=== PATIENT | female | born 1985 | race American Indian/Alaskan Native ===

== ENCOUNTER 2016-07-19 02:32 | Emergency (ER) | payer MEDICAID ==
[2016-07-19 03:28] VITALS: BMI 40.3
[2016-07-19 03:34] VITALS: BP 142/72; PULSE 84; RESP 18; TEMP 97.9; O2SAT 99
--- NOTE | 2016-07-19 03:41 | ED PDOC ---
Arrival/HPI - General Chief Complaint: ENT Problem Time Seen by Provider: 07/19/16 03:36 Historian: Patient - History of Present Illness Narrative History of Present Illness (Text): 07/19/16 03:39 Desirae Black is a 31 year old female who presents to the emergency department complaining of sore throat associated with nasal congestion for past week. Also notes of ringing in left ear. Denies any fever, chills, headache, difficulty breathing, chest pain, nausea, vomiting, diarrhea, urinary symptoms, or any other complaints at this time. Time/Duration: 1 week Symptom Onset: Gradual Symptom Course: Unchanged Severity Level: Mild Activities at Onset: Light Past Medical History - Provider Review Nursing Documentation Reviewed: Yes - Psychiatric Hx Substance Use: (denies) Family/Social History - Physician Review Nursing Documentation Reviewed: Yes Family/Social History: No Known Family HX Smoking Status: denies Hx Alcohol Use: (denies) Hx Substance Use: (denies) Allergies/Home Meds Allergies/Adverse Reactions: Allergies oxycodone Adverse Reaction (Verified 07/19/16 03:29) DIZZINESS Review of Systems - Physician Review All systems were reviewed & negative as marked: Yes - Review of Systems Constitutional: Normal. absent: Fatigue, Fevers ENT: Sore Throat, Other (nasal congestion and ringing in left ear ) Respiratory: Normal. absent: SOB, Cough Cardiovascular: Normal. absent: Chest Pain, Palpitations Gastrointestinal: Normal. absent: Abdominal Pain, Diarrhea, Nausea, Vomiting Neurological: Normal. absent: Headache, Dizziness Psychiatric: Normal Physical Exam Vital Signs Reviewed: Yes Vital Signs Temp Pulse Resp BP Pulse Ox 07/19/16 03:29 97.9 F 84 18 142/72 99 Temperature: Afebrile Blood Pressure: Normal Pulse: Regular Respiratory Rate: Normal Appearance: Positive for: Well-Appearing, Non-Toxic, Comfortable Pain Distress: None Mental Status: Positive for: Alert and Oriented X 3 - Systems Exam Head: Present: Atraumatic, Normocephalic Pupils: Present: PERRL Extroacular Muscles: Present: EOMI Conjunctiva: Present: Normal Ears: Present: Normal, NORMAL TM, Normal Canal. No: Erythema, TM Bulging Mouth: Present: Moist Mucous Membranes Pharnyx: Present: Normal, ERYTHEMA (posterior pharyngeal erythema ). No: EXUDATE, TONSILS ENLARGED, Peritonsilar Swelling Nose (Internal): Present: Other (congestion ) Respiratory/Chest: Present: Clear to Auscultation, Good Air Exchange. No: Respiratory Distress, Accessory Muscle Use Cardiovascular: Present: Regular Rate and Rhythm, Normal S1, S2. No: Murmurs Abdomen: Present: Normal Bowel Sounds. No: Tenderness, Distention, Peritoneal Signs Upper Extremity: Present: Normal Inspection. No: Cyanosis, Edema Lower Extremity: Present: Normal Inspection. No: Edema Neurological: Present: GCS=15, CN II-XII Intact, Speech Normal, Motor Func Grossly Intact, Normal Sensory Function Skin: Present: Warm, Dry, Normal Color. No: Rashes Psychiatric: Present: Alert, Oriented x 3, Normal Insight, Normal Concentration Medical Decision Making ED Course and Treatment: 07/19/16 03:52 Impression: A 31 year old female who presents to the emergency department complaining of sore throat, nasal congestion and ringing in left ear for past week. Plan: -- Amoxil -- Sudafed -- Reassess and disposition Progress Notes: 07/19/16 03:53 Will discharge patient home on Amoxil and sudafed. Advised to present to emergency department for worsening symptoms and follow up with PMD within few days. - Medication Orders Current Medication Orders: Discontinued Medications Amoxicillin (Amoxil 500 Mg Cap) 500 mg PO STAT STA PRN Reason: Protocol Stop: 07/19/16 03:41 Last Admin: 07/19/16 03:50 Dose: 500 mg Pseudoephedrine HCl (Sudafed Tab) 30 mg PO ONCE ONE Stop: 07/19/16 03:41 Last Admin: 07/19/16 03:50 Dose: 30 mg - Scribe Statement The provider has reviewed the documentation as recorded by the Irish Velázquez Provider Attestation: All medical record entries made by the Irish were at my direction and personally dictated by me. I have reviewed the chart and agree that the record accurately reflects my personal performance of the history, physical exam, medical decision making, and the department course for this patient. I have also personally directed, reviewed, and agree with the discharge instructions and disposition. Disposition/Present on Arrival - Present on Arrival Any Indicators Present on Arrival: No History of DVT/PE: No History of Uncontrolled Diabetes: No Urinary Catheter: No History of Decub. Ulcer: No History Surgical Site Infection Following: None - Disposition Have Diagnosis and Disposition been Completed?: Yes Diagnosis: Pharyngitis, URI (upper respiratory infection) Disposition: HOME/ ROUTINE Disposition Time: 03:41 Patient Plan: Discharge Condition: GOOD Discharge Instructions (ExitCare): Pharyngitis (ED), Upper Respiratory Infection (ED) Additional Instructions: Take meds as prescribed/drink cool liquids/follow up with your doctor this week Prescriptions: Fexofenadine/Pseudoephedrine [Geraldine-D 12 Hour Tablet] 1 each PO Q12 PRN #20 tab.er.12h PRN Reason: Nasal Congestion Amoxicillin [Amoxil 500 mg Cap] 500 mg PO TID #30 cap
== END 2016-07-19 04:06 | disposition home or self-care (01) ==
LOC: ED 02:32
DX: J02.9 Acute pharyngitis, unspecified (principal)

== ENCOUNTER 2016-08-08 22:00 | Observation (INO) | payer MEDICAID ==
[2016-08-08 22:07] VITALS: BMI 41.0
[2016-08-08] MEDS ORDERED: Sodium Chloride 0.9% 1,000 ML IV STA (23:34)
[2016-08-09 00:43] LABS: ADD MANUAL DIFF? NO
[2016-08-09 00:46] LABS: BASO # 0.01 K/mm3 (0.0-2.0); BASO % 0.3 % (0.0-3.0); EOS % 1.1 % (1.5-5.0); GRAN # 1.49 (1.4-6.5); GRAN % 39.8 % (50.0-68.0); HEMATOCRIT 34.6 % (36.0-48.0); LYMPH # 1.8 (1.2-3.4); LYMPH % 48.1 % (22.0-35.0); MEAN CELL VOLUME 78.5 fL (80.0-105.0); MEAN CORPUSCULAR HEMOGLOBIN 26.3 pg (25.0-35.0); MEAN CORPUSCULAR HGB CONC 33.5 g/dl (31.0-37.0); MEAN PLATELET VOLUME 8.9 fl (7.0-11.0); MONO # 0.4 (0.1-0.6); MONO % 10.7 % (1.0-6.0); PLATELET COUNT 304 10^3/uL (120.0-450.0); RED CELL DISTRIBUTION WIDTH 12.6 % (11.5-14.5); WHITE BLOOD COUNT 3.7 10^3/ul (4.5-11.0)
[2016-08-09 01:00] LABS: ALKALINE PHOSPHATASE 69 U/L (38-133); ALT/SGPT 38 U/L (7-56); AST/SGOT 25 U/L (15-39); BILIRUBIN,TOTAL 0.4 mg/dL (0.2-1.3); BLOOD UREA NITROGEN 11 mg/dL (7-21); CALCIUM 9.1 mg/dL (8.4-10.5); CARBON DIOXIDE 27 mmol/L (21-33); CHLORIDE 102 mmol/L (98-107); GFR AFRICAN-AMERICAN > 60; GLUCOSE,RANDOM 114 mg/dL (70-110); POTASSIUM 3.9 mmol/L (3.6-5.0); SODIUM 136 mmol/L (132-148); TOTAL PROTEIN 7.7 g/dL (5.8-8.3)
[2016-08-09] MEDS ORDERED: Iohexol 350 MG/100 ML VIAL ONE (01:26)
--- NOTE | 2016-08-09 01:47 | ED PDOC ---
Arrival/HPI - General Chief Complaint: ENT Problem Time Seen by Provider: 08/08/16 22:01 Historian: Patient - History of Present Illness Narrative History of Present Illness (Text): 08/09/16 01:43 31-year-old female presents today with continued sore throat 2 weeks. Patient states she completed full course of antibiotics and is still having pain and difficulty swallowing. Patient states she feels like there is a lump in the right side of the throat that is causing pain and difficulty swallowing. She denies fevers at home. No chest pain or shortness of breath. She denies trismus or drooling. She is complaining of right ear pain right-sided neck and throat pain. Patient states she's been taking Motrin for pain. Patient states occasionally she has been feeling a little dizzy. Patient states she also has a ringing in the right ear. Time/Duration: > week Symptom Onset: Gradual Symptom Course: Worsening Quality: Stabbing Severity Level: 5 Past Medical History - Provider Review Nursing Documentation Reviewed: Yes - Travel History Have you recently traveled outside [place] w/in the past 3 mons?: No - Infectious Disease Hx of Infectious Diseases: None - Endocrine/Metabolic Other/Comment: Gestational diabetes - Psychiatric Hx Substance Use: No (denies) - Surgical History Hx Section: Yes (x2) Hx Cholecystectomy: Yes - Anesthesia Hx Anesthesia: Yes Hx Anesthesia Reactions: No Hx Malignant Hyperthermia: No Family/Social History - Physician Review Nursing Documentation Reviewed: Yes Family/Social History: Unknown Family HX Smoking Status: Never Smoked Hx Alcohol Use: Yes (denies) Frequency of alcohol use: Socially Hx Substance Use: No (denies) Allergies/Home Meds Allergies/Adverse Reactions: Allergies oxycodone Adverse Reaction (Verified 07/19/16 03:29) DIZZINESS Review of Systems - Review of Systems Constitutional: absent: Fatigue, Fevers ENT: Sore Throat, Sinus Congestion, Other (right ear pain) Respiratory: absent: SOB, Cough Cardiovascular: absent: Chest Pain, Palpitations Gastrointestinal: absent: Abdominal Pain, Nausea, Vomiting Genitourinary Female: absent: Dysuria Musculoskeletal: absent: Arthralgias Skin: absent: Rash, Pruritis Neurological: Dizziness. absent: Headache Psychiatric: absent: Anxiety, Depression Physical Exam Vital Signs Reviewed: Yes Vital Signs Temp Pulse Resp BP Pulse Ox 08/08/16 22:10 97.8 F 92 H 18 118/84 98 Temperature: Afebrile Blood Pressure: Normal Pulse: Regular Respiratory Rate: Normal Appearance: Positive for: Well-Appearing, Non-Toxic, Comfortable Pain Distress: None Mental Status: Positive for: Alert and Oriented X 3 - Systems Exam Head: Present: Atraumatic Pupils: Present: PERRL Extroacular Muscles: Present: EOMI Conjunctiva: Present: Normal Ears: Present: Normal, NORMAL TM Mouth: Present: Moist Mucous Membranes, Normal Lips, Normal Tounge. No: Drooling, Trismus Pharnyx: Present: Normal. No: ERYTHEMA, EXUDATE, TONSILS ENLARGED, Peritonsilar Swelling, Uvular Deviation, Muffled/Hoarse Voice Nose (External): Present: Atraumatic Nose (Internal): Present: Normal Inspection Neck: Present: Normal Range of Motion, Lymphadenopathy, Trachea Midline Respiratory/Chest: Present: Clear to Auscultation, Good Air Exchange. No: Respiratory Distress, Accessory Muscle Use Cardiovascular: Present: Regular Rate and Rhythm, Normal S1, S2. No: Murmurs Neurological: Present: GCS=15 Skin: Present: Warm, Dry, Normal Color. No: Rashes Psychiatric: Present: Alert, Oriented x 3 Medical Decision Making ED Course and Treatment: 08/09/16 01:46 Patient is nontoxic well appearing in no distress. Vital signs are stable Patient complaining of continued sore throat with a lump to the right side of the neck and difficulty swallowing. Patient completed a course of antibiotics CBC White blood cell count 3.7 CMP within normal limits CAT scan of the neck soft tissue: FINDINGS: Nasopharynx: Unremarkable. Oropharynx: Unremarkable. No significant tonsillar enlargement. Hypopharynx: Unremarkable. Larynx: Unremarkable. Normal epiglottis. Trachea: Unremarkable. Retropharyngeal space: Unremarkable. Submandibular/parotid glands: Unremarkable. Glands are normal in size. Thyroid: Asymmetric enlargement of the left lobe of the thyroid gland, with mass effect on the trachea. This is incompletely evaluated on the current exam , and extends into the chest. Bones/joints: No acute fracture. Soft tissues: Unremarkable. Vasculature: No acute findings. Lymph nodes: Limited visualization without intravenous contrast in Lung apices: Unremarkable as visualized. IMPRESSION: Asymmetric enlargement of the left lobe of the thyroid gland, with mass effect on the trachea, as detailed above. Patient reassessment: Patient nontoxic well-appearing no distress. vital signs stable. Moist mucous membranes. I discussed all results in depth with the patient. will add on tsh, t4 dr. callaway discussed case with dr. taylor; will admit observational status to med/surg for further evaluation/work up of thyroid mass impression; thyroid mass admit to med/surg 08/09/16 02:56 - Lab Interpretations Lab Results: 08/09/16 00:28 08/09/16 00:25 Lab Results 08/09/16 00:28: WBC 3.7 L, RBC 4.41, Hgb 11.6 L, Hct 34.6 L, MCV 78.5 L, MCH 26.3, MCHC 33.5, RDW 12.6, Plt Count 304, MPV 8.9, Gran % 39.8 L, Lymph % (Auto ) 48.1 H, [place] % (Auto) 10.7 H, Eos % (Auto) 1.1 L, Baso % (Auto) 0.3, Gran # 1.49, Lymph # 1.8, [place] # 0.4, Eos # 0.0, Baso # 0.01 08/09/16 00:25: Sodium 136, Potassium 3.9, Chloride 102, Carbon Dioxide 27, Anion Gap 11, BUN 11, Creatinine 0.8, Est GFR ( Amer) > 60, Est GFR (Non- Af Amer) > 60, Random Glucose 114 H, Calcium 9.1, Total Bilirubin 0.4, AST 25, ALT 38, Alkaline Phosphatase 69, Total Protein 7.7, Albumin 3.9, Globulin 3.8, Albumin/Globulin Ratio 1.0 L - RAD Interpretation Radiology Orders: 08/09/16 02:15 NECK SOFT TISSUE W/O CONTRAST [CT] Stat - Medication Orders Current Medication Orders: Discontinued Medications Sodium Chloride (Sodium Chloride 0.9%) 1,000 mls @ 999 mls/hr IV .Q1H1M STA Stop: 08/09/16 00:34 Iohexol (Omnipaque 350 100 Ml) Confirm Administered Dose 350 mg .ROUTE .STK-MED ONE Stop: 08/09/16 01:27 Disposition/Present on Arrival - Present on Arrival Any Indicators Present on Arrival: No History of DVT/PE: No History of Uncontrolled Diabetes: No Urinary Catheter: No History of Decub. Ulcer: No History Surgical Site Infection Following: None - Disposition Have Diagnosis and Disposition been Completed?: Yes Diagnosis: Thyroid mass, Dysphagia Disposition: HOSPITALIZED Disposition Time: 02:56 Patient Plan: Observation Condition: FAIR Referrals: Patricia Farfan MD [Primary Care Provider] - Follow up with primary
--- NOTE | 2016-08-09 02:44 | CT ---
EXAM: CT Neck Without Intravenous Contrast CLINICAL HISTORY: 31 years old, female; Pain; Painful swallowing; Additional info: Pain with swallowing x 2 weeks TECHNIQUE: Axial computed tomography images of the neck without intravenous contrast. This CT exam was performed using one or more of the following dose reduction techniques: automated exposure control, adjustment of the mA and/or kV according to patient size, and/or use of iterative reconstruction technique. Coronal and sagittal reformatted images were created and reviewed. COMPARISON: No relevant prior studies available. FINDINGS: Nasopharynx: Unremarkable. Oropharynx: Unremarkable. No significant tonsillar enlargement. Hypopharynx: Unremarkable. Larynx: Unremarkable. Normal epiglottis. Trachea: Unremarkable. Retropharyngeal space: Unremarkable. Submandibular/parotid glands: Unremarkable. Glands are normal in size. Thyroid: Asymmetric enlargement of the left lobe of the thyroid gland, with mass effect on the trachea. This is incompletely evaluated on the current exam, and extends into the chest. Bones/joints: No acute fracture. Soft tissues: Unremarkable. Vasculature: No acute findings. Lymph nodes: Limited visualization without intravenous contrast in Lung apices: Unremarkable as visualized. IMPRESSION: Asymmetric enlargement of the left lobe of the thyroid gland, with mass effect on the trachea, as detailed above.
[2016-08-09 03:32] LABS: T4 11.1 ug/dL (5.5-11.0)
[2016-08-09 03:46] LABS: THYROID STIMULATING HORMONE 2.99 mIU/mL (0.46-4.68)
[2016-08-09] MEDS ORDERED: DiphenhydrAMINE 12.5 mg/5 ml LIQ UD (5 ml) PO PRN (04:18)
[2016-08-09 05:39] VITALS: RESP 20
--- NOTE | 2016-08-09 05:52 | CP.PCM.HP ---
<Kaitlyn Abreu - Last Filed: 08/09/16 05:30> History of Present Illness - History of Present Illness History of Present Illness: 31 year old female with past medical history of gestational diabetes presents to [facility] today complaining of odynophagia of one month. Patient reports she came to [facility] 3 weeks ago and discharged with amoxicillin. Patient finished a course antibiotics as prescribed but did not improve her symptoms. Patient states she feels there a "swollen lump" in her throat. She describes the pain as sharp in quality, non-radiating, rates its 5/10 in intensity. Patient tried taking OCT pain medication which provided some relief. Patient states her pain and difficulty swallowing has been getting worse. Last night, patient started feeling anxious and shortness of breath which prompted patient to become the ED. Patient also complains of right ear numbness associated with throat pain. Patient also reports to have 5 pounds weight gain within one month period. She denies having headache, weakness, night sweats, weight loss, fever, chills, rhinorrhea, voice changes, chest pain, nausea, vomiting, diarrhea, constipation, urinary symptoms or history of recent travel. PMD: Dr. Farfan PMHx: gestational DM PSHx: x2, cholecystectomy Allergy: oxycodone (dizziness) FMHx: grandfather pancreatic cancer Social: Denies tobacco, alcohol or other drug use Home meds: none Present on Admission - Present on Admission Any Indicators Present on Admission: No History of DVT/PE: No History of Uncontrolled Diabetes: No Review of Systems - Constitutional Constitutional: As Per HPI, Weight Gain. absent: Chills, Fever, Lethargy, Weight Loss, Weakness - EENT Eyes: As Per HPI. absent: Blurred Vision, Change in Vision, Irritation, Loss of Vision Ears: As Per HPI, Tinnitus (numbness) Nose/Mouth/Throat: As Per HPI, Dysphagia, Odynophagia, Sore Throat, Throat Swelling, Neck Mass. absent: Epistaxis, Nasal Congestion, Nasal Discharge - Cardiovascular Cardiovascular: As Per HPI, Dyspnea. absent: Chest Pain, Diaphoresis, Palpitations, Syncope - Respiratory Respiratory: As Per HPI, Dyspnea. absent: Hemoptysis, Wheezing - Gastrointestinal Gastrointestinal: As Per HPI, Dysphagia. absent: Constipation, Diarrhea, Heartburn, Nausea, Vomiting - Genitourinary Genitourinary: As Per HPI. absent: Flank Pain, Urinary Frequency, Urinary Hesitance, Urinary Urgency - Musculoskeletal Musculoskeletal: As Per HPI. absent: Back Pain, Deformity, Joint Swelling, Numbness - Integumentary Integumentary: As Per HPI. absent: Acne, Alopecia, Lesions, Rash, Swelling - Neurological Neurological: As Per HPI, Numbness (bilateral ears), Tingling (bilateral ears). absent: Headaches, Loss of Vision, Sensory Deficit, Syncope - Psychiatric Psychiatric: As Per HPI, Anxiety. absent: Depression, Hallucinations, Visual Hallucinations - Endocrine Endocrine: As Per HPI - Hematologic/Lymphatic Hematologic: As Per HPI Past Patient History - Infectious Disease Hx of Infectious Diseases: None - Past Social History Smoking Status: Never Smoked - ENDOCRINE/METABOLIC Other/Comment: Gestational diabetes - PSYCHIATRIC Hx Substance Use: No (denies) - SURGICAL HISTORY Hx Section: Yes (x2) Hx Cholecystectomy: Yes - ANESTHESIA Hx Anesthesia: Yes Hx Anesthesia Reactions: No Hx Malignant Hyperthermia: No Meds Allergies/Adverse Reactions: Allergies Allergy/AdvReac Type Severity Reaction Status Date / Time oxycodone AdvReac DIZZINESS Verified 07/19/16 03:29 Physical Exam - Constitutional Appears: Non-toxic, No Acute Distress - Head Exam Head Exam: ATRAUMATIC, NORMAL INSPECTION, NORMOCEPHALIC - Eye Exam Eye Exam: EOMI, Normal appearance, PERRL - ENT Exam ENT Exam: Mucous Membranes Moist Additional comments: no erythema, no exudates appreciated - Neck Exam Neck exam: Positive for: Tenderness - Respiratory Exam Respiratory Exam: Clear to Auscultation Bilateral, NORMAL BREATHING PATTERN. absent: Rhonchi, Wheezes, Respiratory Distress - Cardiovascular Exam Cardiovascular Exam: REGULAR RHYTHM, RRR, +S1, +S2 - GI/Abdominal Exam GI & Abdominal Exam: Normal Bowel Sounds, Soft. absent: Rigid, Tenderness - Extremities Exam Extremities exam: Positive for: normal capillary refill, normal inspection, pedal pulses present. Negative for: tenderness - Back Exam Back exam: NORMAL INSPECTION - Neurological Exam Neurological exam: Alert, Oriented x3 - Psychiatric Exam Psychiatric exam: Normal Affect, Normal Mood - Skin Skin Exam: Dry, Normal Color, Warm Results - Vital Signs Recent Vital Signs: Last Vital Signs Temp 98.0 F 08/09/16 03:15 Pulse 82 08/09/16 03:15 Resp 18 08/09/16 03:15 BP 139/84 05/16/17 03:15 Pulse Ox 100 08/09/16 03:15 - Labs Result Diagrams: 08/09/16 00:28 08/09/16 00:25 Labs: Laboratory Results - last 24 hr 08/09/16 08/09/16 08/09/16 00:25 00:25 00:28 WBC 3.7 L RBC 4.41 Hgb 11.6 L Hct 34.6 L MCV 78.5 L MCH 26.3 MCHC 33.5 RDW 12.6 Plt Count 304 MPV 8.9 Gran % 39.8 L Lymph % (Auto) 48.1 H [place] % (Auto) 10.7 H Eos % (Auto) 1.1 L Baso % (Auto) 0.3 Gran # 1.49 Lymph # 1.8 [place] # 0.4 Eos # 0.0 Baso # 0.01 Sodium 136 Potassium 3.9 Chloride 102 Carbon Dioxide 27 Anion Gap 11 BUN 11 Creatinine 0.8 Est GFR ( Amer) > 60 Est GFR (Non-Af Amer) > 60 Random Glucose 114 H Calcium 9.1 Total Bilirubin 0.4 AST 25 ALT 38 Alkaline Phosphatase 69 Total Protein 7.7 Albumin 3.9 Globulin 3.8 Albumin/Globulin Ratio 1.0 L Thyroxine (T4) 11.1 H TSH 3rd Generation 2.99 Assessment & Plan - Assessment and Plan (Free Text) Assessment: 31 year female with no significant past medical history presents with throat pain was found to have a thyroid mass Plan: Odynophagia secondary to thyroid mass -Vitals stable, O2 sat at 99% RA -CT soft tissue neck showed asymmetric enlargement of the left lobe of the thyroid gland, with mass effect on the trachea (see full report) -TSH 2.99, T4 11.1 -ENT consult, Dr. Bennett help appreciated -Advance diet as tolerated, regular diet -Aspiration precaution Insomnia secondary to anxiety -Benadryl 12.5mg po HS Prophylactic measures -Protonix of GI ppx -SCD for DVT ppx <Miriam Cevallos - Last Filed: 08/09/16 06:50> Results - Vital Signs Recent Vital Signs: Last Vital Signs Temp 97.8 F 08/09/16 05:26 Pulse 84 08/09/16 05:26 Resp 20 08/09/16 05:26 BP 121/77 08/09/16 05:26 Pulse Ox 100 08/09/16 03:15 - Labs Result Diagrams: 08/09/16 00:28 08/09/16 00:25 Attending/Attestation - Attestation I have personally seen and examined this patient.: Yes I have fully participated in the care of the patient.: Yes I have reviewed all pertinent clinical information: Yes Notes (Text): 08/09/16 06:46 Patient was examined when she was in [id number]. Agree with history, physical examination,assessment and plan. 31 year old woman with history of prediabetes,obesity, floaters before eyes, tinitus in left ear, right ear pain, foggy feeling in head for weeks, sore throat ,swelling in right side of neck, heart murmur, sickle cell trait, umbilical hernia, cholecystectomy, C Sectionsx2 ,obesity, pancreatitis-post , P4 ,G6 LMP-2007, right knee ACL tear, multiple yeast infections, renal calculus, UTI's, depression for short period , lives in [place] with children in an apartment, comes in with complaints of sorethroat, 'Feels a ball in right side of throat, headache, dizziness,little sob, her primary physician is from [place].
[2016-08-09] MEDS: Pantoprazole 40 mg EC Tab PO SCH (07:25)
[2016-08-09 07:32] LABS: ADD MANUAL DIFF? NO
[2016-08-09 07:36] LABS: BASO # 0.01 K/mm3 (0.0-2.0); BASO % 0.3 % (0.0-3.0); EOS % 1.1 % (1.5-5.0); GRAN # 1.38 (1.4-6.5); GRAN % 38.2 % (50.0-68.0); HEMATOCRIT 33.7 % (36.0-48.0); LYMPH # 1.8 (1.2-3.4); LYMPH % 49.9 % (22.0-35.0); MEAN CORPUSCULAR HEMOGLOBIN 26.4 pg (25.0-35.0); MEAN CORPUSCULAR HGB CONC 33.8 g/dl (31.0-37.0); MEAN PLATELET VOLUME 8.6 fl (7.0-11.0); MONO # 0.4 (0.1-0.6); MONO % 10.5 % (1.0-6.0); PLATELET COUNT 277 10^3/uL (120.0-450.0); RED CELL DISTRIBUTION WIDTH 12.5 % (11.5-14.5); WHITE BLOOD COUNT 3.6 10^3/ul (4.5-11.0)
[2016-08-09 07:50] LABS: ALKALINE PHOSPHATASE 63 U/L (38-133); ALT/SGPT 39 U/L (7-56); AST/SGOT 22 U/L (15-39); BILIRUBIN,TOTAL 0.4 mg/dL (0.2-1.3); BLOOD UREA NITROGEN 9 mg/dL (7-21); CALCIUM 8.5 mg/dL (8.4-10.5); CARBON DIOXIDE 27 mmol/L (21-33); CHLORIDE 104 mmol/L (98-107); GFR AFRICAN-AMERICAN > 60; GLUCOSE,RANDOM 121 mg/dL (70-110); POTASSIUM 3.6 mmol/L (3.6-5.0); SODIUM 140 mmol/L (132-148); TOTAL PROTEIN 7.2 g/dL (5.8-8.3)
--- NOTE | 2016-08-09 09:57 | CP.PCM.CON ---
<Castro Cuello - Last Filed: 08/09/16 13:07> History of Present Illness - History of Present Illness History of Present Illness: PGY4 GI Fellow Consult Note Patient is a 31yo female with PMHx significant for gestational DM and gallstone pancreatitis who presents with one month of dysphagia. She initially presented to the ED one month ago complaining of sore throat and was discharged with Geraldine-D and Amoxicillin. When she finished the prescription she noted that she continued to have throat discomfort and now describes this as feeling like a ball is stuck in her throat. She denies any issues eating or drinking and does not feel like food is getting stuck in her throat. Has not had any choking or coughing while eating. She also admits to an increased fullness of her neck in the past month along with worsening anxiety, palpitations, shortness of breath, restlessness and hair loss. Has actually had some weight gain in this one month time frame. A CT of the neck performed in the ED revealed asymmetric enlargement of the left lobe of the thyroid gland. PMHx: See HPI PSHx: Cholecystectomy FHx: Maternal grandfather - Leukemia; Maternal grandmother - Rectal cancer Social: Denies tobacco, EtOH or illicit drug use Endo: Unsure, may have had EGD/ERCP during episode of gallstone pancreatitis Review of Systems - Constitutional Constitutional: Daytime Sleepiness, Fatigue, Malaise, Night Sweats, Weight Gain. absent: Anorexia, Chills, Fever - EENT Eyes: Spots in Vision Nose/Mouth/Throat: Dysphagia, Sore Throat - Cardiovascular Cardiovascular: absent: Chest Pain, Dyspnea, Edema - Respiratory Respiratory: absent: Cough, Dyspnea, Excessive Mucous Production - Gastrointestinal Gastrointestinal: Dysphagia. absent: Abdominal Pain, Belching, Bloating, Constipation, Cramping, Diarrhea, Dyspepsia, Hematemesis, Hematochezia, Loose Stools, Melena, Nausea, Odynophagia, Vomiting - Genitourinary Genitourinary: absent: Dysuria, Urinary Frequency, Urinary Urgency - Musculoskeletal Musculoskeletal: absent: Back Pain, Neck Pain - Integumentary Integumentary: Change in Hair. absent: New Lesions, Rash - Neurological Neurological: absent: Dizziness, Numbness, Focal Weakness - Psychiatric Psychiatric: Abnormal Sleep Pattern, Anxiety, Panic Attacks. absent: Depression - Endocrine Endocrine: Change in Body Appearance (fullness of neck), Excessive Sweating, Fatigue, Flushing, Palpitations - Hematologic/Lymphatic Hematologic: absent: Easy Bleeding, Easy Bruising, Lymphadenopathy Past Patient History - Infectious Disease Hx of Infectious Diseases: None - Past Social History Smoking Status: Never Smoked - ENDOCRINE/METABOLIC Other/Comment: Gestational diabetes - MUSCULOSKELETAL/RHEUMATOLOGICAL Hx Falls: No - PSYCHIATRIC Hx Substance Use: No (denies) - SURGICAL HISTORY Hx Section: Yes (x2) Hx Cholecystectomy: Yes - ANESTHESIA Hx Anesthesia: Yes Hx Anesthesia Reactions: No Hx Malignant Hyperthermia: No Meds Allergies/Adverse Reactions: Allergies Allergy/AdvReac Type Severity Reaction Status Date / Time oxycodone AdvReac DIZZINESS Verified 07/19/16 03:29 - Medications Medications: Current Medications Acetaminophen (Tylenol 325mg Tab) 650 mg PO Q6H PRN PRN Reason: Fever >100.4 F Diphenhydramine HCl (Benadryl) 12.5 mg PO HS PRN PRN Reason: Insomnia Pantoprazole Sodium (Protonix Ec Tab) 40 mg PO 0630 TEDDY Last Admin: 08/09/16 07:25 Dose: 40 mg Physical Exam - Constitutional Appears: Non-toxic, No Acute Distress - Eye Exam Eye Exam: EOMI, PERRL - ENT Exam ENT Exam: Mucous Membranes Moist - Neck Exam Neck exam: Positive for: Thyromegaly - Respiratory Exam Respiratory Exam: Clear to Auscultation Bilateral. absent: Rales, Rhonchi, Wheezes - Cardiovascular Exam Cardiovascular Exam: RRR, +S1, +S2 - GI/Abdominal Exam GI & Abdominal Exam: Normal Bowel Sounds, Soft. absent: Distended, Firm, Guarding, Organomegaly, Rigid, Tenderness - Extremities Exam Extremities exam: Positive for: normal inspection. Negative for: pedal edema - Neurological Exam Neurological exam: Alert, Oriented x3 - Psychiatric Exam Psychiatric exam: Normal Affect, Normal Mood - Skin Skin Exam: Dry, Warm Results - Vital Signs Recent Vital Signs: Last Vital Signs Temp 98.3 F 08/09/16 08:57 Pulse 74 08/09/16 08:57 Resp 20 08/09/16 08:57 BP 121/77 08/09/16 08:57 Pulse Ox 96 08/09/16 08:57 - Labs Result Diagrams: 08/09/16 06:30 08/09/16 06:30 Labs: Laboratory Results - last 24 hr 08/09/16 08/09/16 08/09/16 06:30 06:30 08:00 WBC 3.6 L RBC 4.32 Hgb 11.4 L Hct 33.7 L MCV 78.0 L MCH 26.4 MCHC 33.8 RDW 12.5 Plt Count 277 MPV 8.6 Gran % 38.2 L Lymph % (Auto) 49.9 H [place] % (Auto) 10.5 H Eos % (Auto) 1.1 L Baso % (Auto) 0.3 Gran # 1.38 L Lymph # 1.8 [place] # 0.4 Eos # 0.0 Baso # 0.01 Sodium 140 Potassium 3.6 Chloride 104 Carbon Dioxide 27 Anion Gap 13 BUN 9 Creatinine 0.8 Est GFR ( Amer) > 60 Est GFR (Non-Af Amer) > 60 Random Glucose 121 H Calcium 8.5 Total Bilirubin 0.4 AST 22 ALT 39 Alkaline Phosphatase 63 Total Protein 7.2 Albumin 3.6 Globulin 3.6 Albumin/Globulin Ratio 1.0 L Total T3 1.20 Assessment & Plan - Assessment and Plan (Free Text) Assessment: Patient is a 31yo female with PMHx significant for gestational DM and gallstone pancreatitis who presents with one month of dysphagia. -Asymmetric thyromegaly -Dysphagia likely 2/2 above Plan: -CT soft tissue reviewed; may benefit from thyroid U/S to better characterize and evaluate thyroid -TSH/T4 noted -Given compression and extension in to chest noted on CT, likely etiology of globus sensation is thyroid lesion -Would defer further GI work up at this time -Will benefit from endocrinology/surgery evaluation -Liquid diet as tolerated -If patient continues to have symptoms following thyroid work upp, could consider EGD at later date - Date & Time Date: 08/09/16 Time: 09:40 <Gareth Bonilla - Last Filed: 08/09/16 13:41> Meds - Medications Medications: Current Medications Acetaminophen (Tylenol 325mg Tab) 650 mg PO Q6H PRN PRN Reason: Fever >100.4 F Diphenhydramine HCl (Benadryl) 12.5 mg PO HS PRN PRN Reason: Insomnia Pantoprazole Sodium (Protonix Ec Tab) 40 mg PO 0630 TEDDY Last Admin: 08/09/16 07:25 Dose: 40 mg Results - Vital Signs Recent Vital Signs: Last Vital Signs Temp 98.3 F 08/09/16 08:57 Pulse 74 08/09/16 08:57 Resp 20 08/09/16 08:57 BP 121/77 08/09/16 08:57 Pulse Ox 96 08/09/16 08:57 - Labs Result Diagrams: 08/09/16 06:30 08/09/16 06:30 Labs: Laboratory Results - last 24 hr 08/09/16 08/09/16 08/09/16 06:30 06:30 08:00 WBC 3.6 L RBC 4.32 Hgb 11.4 L Hct 33.7 L MCV 78.0 L MCH 26.4 MCHC 33.8 RDW 12.5 Plt Count 277 MPV 8.6 Gran % 38.2 L Lymph % (Auto) 49.9 H [place] % (Auto) 10.5 H Eos % (Auto) 1.1 L Baso % (Auto) 0.3 Gran # 1.38 L Lymph # 1.8 [place] # 0.4 Eos # 0.0 Baso # 0.01 Sodium 140 Potassium 3.6 Chloride 104 Carbon Dioxide 27 Anion Gap 13 BUN 9 Creatinine 0.8 Est GFR ( Amer) > 60 Est GFR (Non-Af Amer) > 60 Random Glucose 121 H Calcium 8.5 Total Bilirubin 0.4 AST 22 ALT 39 Alkaline Phosphatase 63 Total Protein 7.2 Albumin 3.6 Globulin 3.6 Albumin/Globulin Ratio 1.0 L Total T3 1.20 Attending/Attestation - Attestation I have personally seen and examined this patient.: Yes I have fully participated in the care of the patient.: Yes I have reviewed all pertinent clinical information: Yes Notes (Text): 08/09/16 13:39 31 year old female with h/o gallstone pancreatitis, gestational DM who presents with one month of dysphagia/globus sensation, found to have enlarged/abnormal thyoid. 1. Thyromegaly 2. Dysphagia 3. Globus sensation Plan: -review CT images -appears to be an issue related to thyroid disease -would recommend general surgery and endocrine evaluation for further workup and treatment -doesn't appear to have a GI causes for symptoms -can pursue EGD electively as outpatient after thyroid issue is evaluated
--- NOTE | 2016-08-09 17:45 | US ---
HISTORY: evaluate thyroid gland, left thyroid nodule TECHNIQUE: Sonographic evaluation of the thyroid gland. COMPARISON: 08/09/2016. CT neck FINDINGS: RIGHT LOBE: Measures 1.6 x 2 x 5.5 cm. Normal echotexture and flow. Nodules: None LEFT LOBE: Measures 2.7 x 2.9 x 8.5 cm. Enlarged, a normal flow Nodules: Solitary complex primarily solid nodule with cystic components 3.8 x 4.6 x 5.4 cm. This corresponds to the inferior aspect of the thyroid. ISTHMUS: Measures 0.33 cm. Nodules: None OTHER FINDINGS: None . IMPRESSION: Complex primarily solid nodule lower pole left lobe. Elective nuclear medicine study advised based on appearance and size.
[2016-08-10] MEDS: Pantoprazole 40 mg EC Tab PO SCH (06:25)
[2016-08-10 10:12] VITALS: BP 125/86; PULSE 65; TEMP 97.8; O2SAT 99
--- NOTE | 2016-08-10 11:12 | CP.PCM.DIS ---
<Wisam Bowers - Last Filed: 08/12/16 17:38> Provider - Provider Date of Admission: 08/09/16 02:56 Attending physician: Christiano Shah MD Primary care physician: Patricia Farfan Consults: GI: Chad ENT: Eliud Time Spent in preparation of Discharge (in minutes): 45 Hospital Course - Lab Results Lab Results: Most Recent Lab Values WBC 3.6 10^3/ul (4.5-11.0) L 08/09/16 06:30 RBC 4.32 10^6/uL (3.5-6.1) 08/09/16 06:30 Hgb 11.4 gm/dL (12.0-16.0) L 08/09/16 06:30 Hct 33.7 % (36.0-48.0) L 08/09/16 06:30 MCV 78.0 fL (80.0-105.0) L 08/09/16 06:30 MCH 26.4 pg (25.0-35.0) 08/09/16 06:30 MCHC 33.8 g/dl (31.0-37.0) 08/09/16 06:30 RDW 12.5 % (11.5-14.5) 08/09/16 06:30 Plt Count 277 10^3/uL (120.0-450.0) 08/09/16 06:30 MPV 8.6 fl (7.0-11.0) 08/09/16 06:30 Gran % 38.2 % (50.0-68.0) L 08/09/16 06:30 Lymph % (Auto) 49.9 % (22.0-35.0) H 08/09/16 06:30 [place] % (Auto) 10.5 % (1.0-6.0) H 08/09/16 06:30 Eos % (Auto) 1.1 % (1.5-5.0) L 08/09/16 06:30 Baso % (Auto) 0.3 % (0.0-3.0) 08/09/16 06:30 Gran # 1.38 (1.4-6.5) L 08/09/16 06:30 Lymph # 1.8 (1.2-3.4) 08/09/16 06:30 [place] # 0.4 (0.1-0.6) 08/09/16 06:30 Eos # 0.0 (0.0-0.7) 08/09/16 06:30 Baso # 0.01 K/mm3 (0.0-2.0) 08/09/16 06:30 Sodium 140 mmol/L (132-148) 08/09/16 06:30 Potassium 3.6 mmol/L (3.6-5.0) 08/09/16 06:30 Chloride 104 mmol/L (98-107) 08/09/16 06:30 Carbon Dioxide 27 mmol/L (21-33) 08/09/16 06:30 Anion Gap 13 (10-20) 08/09/16 06:30 BUN 9 mg/dL (7-21) 08/09/16 06:30 Creatinine 0.8 mg/dL (0.5-1.4) 08/09/16 06:30 Est GFR ( Amer) > 60 08/09/16 06:30 Est GFR (Non-Af Amer) > 60 08/09/16 06:30 Random Glucose 121 mg/dL (70-110) H 08/09/16 06:30 Calcium 8.5 mg/dL (8.4-10.5) 08/09/16 06:30 Total Bilirubin 0.4 mg/dL (0.2-1.3) 08/09/16 06:30 AST 22 U/L (15-39) 08/09/16 06:30 ALT 39 U/L (7-56) 08/09/16 06:30 Alkaline Phosphatase 63 U/L (38-133) 08/09/16 06:30 Total Protein 7.2 g/dL (5.8-8.3) 08/09/16 06:30 Albumin 3.6 g/dL (3.0-4.8) 08/09/16 06:30 Globulin 3.6 gm/dL 08/09/16 06:30 Albumin/Globulin Ratio 1.0 (1.1-1.8) L 08/09/16 06:30 Thyroxine (T4) 11.1 ug/dL (5.5-11.0) H 08/09/16 00:25 Total T3 1.20 ng/mL (0.97-1.69) 08/09/16 08:00 TSH 3rd Generation 2.99 mIU/mL (0.46-4.68) 08/09/16 00:25 - Hospital Course Hospital Course: Upon Admission: 31yo F with PMHx of gestational diabetes here for evaluation of odynophagia for the past month. No problems with speech or swallowing. Tolerating soft diet. CT neck with evidence of assymetric enlargement of the left lobe. Thyroid US with complex solitary nodule with cystic components (3.8cm x 4.6cm x 5.4cm). ENT consult was obtained who recommended furter evaluation of thyroid nodule and with Endocrinology. GI consult was obtained, recommend further treatment with general surgery and endocrinology follow up for thyroid nodule. Recommend outpatient elective EGD as out-patient after work up of thyroid nodule is complete. Patient states that she would like to complete her work up as an out- patient. Throughout this admission, patient status has remained stable, no signs of dysphagia, no signs of respiratory compromise. Patient elected to be discharged in order to follow up with her Primary Care Physician, Dr. Farfan, for further treatment and management of her Thyroid nodule. Thorough discussion was had with the patient regarding follow up of the thyroid nodule. Patient was deemed stable for discharge with close out-patient follow up with her PMD. 1. Thyroid nodule; out-patient work-up and completion of evaluation Upon Discharge: Patient is cleared for discharge as per Dr. Shah 1. Follow up with your primary care physician within one week. 2. Follow up with Endocrinology for work up of thyroid nodule as out-patient 3. You will benefit from thyroid nodule biopsy as an out-patient to be set up with your primary care physician 4. Return to the ER with any concerning symptoms. Discharge Exam - Head Exam Head Exam: ATRAUMATIC, NORMAL INSPECTION, NORMOCEPHALIC - Eye Exam Eye Exam: EOMI, Normal appearance. absent: Scleral icterus - ENT Exam ENT Exam: Mucous Membranes Moist, Normal Oropharynx - Respiratory Exam Respiratory Exam: Clear to PA & Lateral. absent: Decreased Breath Sounds, Rhonchi, Wheezes, Respiratory Distress, NORMAL BREATHING PATTERN Additional comments: No stridor. No respiratory distress. Clear to auscultation bilaterally - Cardiovascular Exam Cardiovascular Exam: RRR, +S1, +S2. absent: JVD - GI/Abdominal Exam GI & Abdominal Exam: Soft. absent: Distended, Firm, Guarding, Tenderness - Extremities Exam Extremities exam: normal inspection - Back Exam Back exam: NORMAL INSPECTION - Neurological Exam Neurological exam: Alert, Oriented x3 - Psychiatric Exam Psychiatric exam: Normal Affect, Normal Mood - Skin Skin Exam: Dry, Intact, Normal Color, Warm Discharge Plan - Follow Up Plan Condition: FAIR Disposition: HOME/ ROUTINE Instructions: Soft Diet (DC), Cigarette Smoking and Your Health (GEN), Chronic Dysphagia (GEN), Thyroid Nodules (GEN) Additional Instructions: Patient is cleared for discharge as per Dr. Shah 1. Follow up with your primary care physician within one week. 2. Follow up with Endocrinology for work up of thyroid nodule as out-patient 3. You will benefit from thyroid nodule biopsy as an out-patient to be set up with your primary care physician 4. Return to the ER with any concerning symptoms. Referrals: Patricia Farfan MD [Primary Care Provider] - <Christiano Shah MD - Last Filed: 08/13/16 12:05> Provider - Provider Date of Admission: 08/09/16 02:56 Attending physician: Christiano Shah MD Primary care physician: [facility] Course - Lab Results Lab Results: Most Recent Lab Values WBC 3.6 10^3/ul (4.5-11.0) L 08/09/16 06:30 RBC 4.32 10^6/uL (3.5-6.1) 08/09/16 06:30 Hgb 11.4 gm/dL (12.0-16.0) L 08/09/16 06:30 Hct 33.7 % (36.0-48.0) L 08/09/16 06:30 MCV 78.0 fL (80.0-105.0) L 08/09/16 06:30 MCH 26.4 pg (25.0-35.0) 08/09/16 06:30 MCHC 33.8 g/dl (31.0-37.0) 08/09/16 06:30 RDW 12.5 % (11.5-14.5) 08/09/16 06:30 Plt Count 277 10^3/uL (120.0-450.0) 08/09/16 06:30 MPV 8.6 fl (7.0-11.0) 08/09/16 06:30 Gran % 38.2 % (50.0-68.0) L 08/09/16 06:30 Lymph % (Auto) 49.9 % (22.0-35.0) H 08/09/16 06:30 [place] % (Auto) 10.5 % (1.0-6.0) H 08/09/16 06:30 Eos % (Auto) 1.1 % (1.5-5.0) L 08/09/16 06:30 Baso % (Auto) 0.3 % (0.0-3.0) 08/09/16 06:30 Gran # 1.38 (1.4-6.5) L 08/09/16 06:30 Lymph # 1.8 (1.2-3.4) 08/09/16 06:30 [place] # 0.4 (0.1-0.6) 08/09/16 06:30 Eos # 0.0 (0.0-0.7) 08/09/16 06:30 Baso # 0.01 K/mm3 (0.0-2.0) 08/09/16 06:30 Sodium 140 mmol/L (132-148) 08/09/16 06:30 Potassium 3.6 mmol/L (3.6-5.0) 08/09/16 06:30 Chloride 104 mmol/L (98-107) 08/09/16 06:30 Carbon Dioxide 27 mmol/L (21-33) 08/09/16 06:30 Anion Gap 13 (10-20) 08/09/16 06:30 BUN 9 mg/dL (7-21) 08/09/16 06:30 Creatinine 0.8 mg/dL (0.5-1.4) 08/09/16 06:30 Est GFR ( Amer) > 60 08/09/16 06:30 Est GFR (Non-Af Amer) > 60 08/09/16 06:30 Random Glucose 121 mg/dL (70-110) H 08/09/16 06:30 Calcium 8.5 mg/dL (8.4-10.5) 08/09/16 06:30 Total Bilirubin 0.4 mg/dL (0.2-1.3) 08/09/16 06:30 AST 22 U/L (15-39) 08/09/16 06:30 ALT 39 U/L (7-56) 08/09/16 06:30 Alkaline Phosphatase 63 U/L (38-133) 08/09/16 06:30 Total Protein 7.2 g/dL (5.8-8.3) 08/09/16 06:30 Albumin 3.6 g/dL (3.0-4.8) 08/09/16 06:30 Globulin 3.6 gm/dL 08/09/16 06:30 Albumin/Globulin Ratio 1.0 (1.1-1.8) L 08/09/16 06:30 Thyroxine (T4) 11.1 ug/dL (5.5-11.0) H 08/09/16 00:25 Total T3 1.20 ng/mL (0.97-1.69) 08/09/16 08:00 TSH 3rd Generation 2.99 mIU/mL (0.46-4.68) 08/09/16 00:25 Attending/Attestation - Attestation I have personally seen and examined this patient.: Yes I have fully participated in the care of the patient.: Yes I have reviewed all pertinent clinical information, including history, physical exam and plan: Yes Notes (Text): 08/13/16 12:04 Patient was seen and examined with medical office scheduler .Agreed with resident assessment and plan. 31 Yrs old F with PMH of gestational diabetes was admitted for evaluation of odynophagia for the past month. CT neck with evidence of assymetric enlargement of the left lobe. Thyroid US with complex solitary nodule with cystic components (3.8cm x 4.6cm x 5.4cm).Patient TSH level was normal.Patient did not has any problem with swallowing here in the hospital. Patient was on room air. She need biopsy of her solitary thyroid nodule. This was discussed in detail with her. She wants to follow up with her PCP and want to follow up as outpatient with endocrinology. The need of biopsies and further evaluation of this thyroid nodule was discussed in detail with her. Patient is planning to get all LABS and thyroid US report from medical record and is planning to follow up with endocrinology as outpatient. Management plan was discussed in detail with patient Education was provided.
--- NOTE | 2016-08-10 13:14 | CON ---
DATE: 08/10/2016 REASON FOR CONSULTATION: Evaluate thyroid and throat. HISTORY OF PRESENT ILLNESS: The patient is a 31-year-old female with a history of g estational diabetes, presented to [facility] complaining of odynophagia for 1 month. She was placed on a dose of amoxicillin. The patient says she had an anxiety attack, felt like she had some anxiety, went to the ED where patient was admitted because she was anxious and shortness of sherwin th. The patient also reported 5 pounds of weight gain within 1 month. Denies having headaches, weak ness, night sweats, weight loss, fevers, chills, rhinorrhea, voice changes, chest pain, shortness of breath, otherwise nausea, vomiting, diarrhea, constipation, or recent travel. The patient's primary medical doctor is Dr. Miguelangel Waldron. The patient has also had a cholecystectomy. PAST SURGICAL HISTORY: As per HPI. The patient was seen and examined. Vital signs stable. LABORATORY DATA: Hemoglobin 11.4, hematocrit 33.7, white count 3.6 and platelets 277. Sodium 140, p otassium 3.6, chloride 104, CO2 27, BUN 9, creatinine 0.8, glucose 121. T4 of 11.1, total T3 of 1.2. TSH third generation 2.99. Calcium 9.1, total protein 7.7, albumin 3.9. PHYSICAL EXAMINATION: GENERAL: The patient was seen and examined. Alert and oriented x 3, no acute distress. ____. MOUTH: Moist mucous membranes. No floor of mouth swelling. No tongue deviation. Poor dentition. Symmetric palate elevation. No masses in the oral cavity or oropharynx. NECK: Enlarged thyroid on the left palpated. No nodules felt upon palpation. RESPIRATORY: Breathing well. No stridor, nonlabored breathing, no distress. ENT: Fiberoptic laryngoscope was inserted into the patient's right naris and advanced into the nasop harynx. Note that the patient has prominent adenoid tissue noted in the nasopharynx. Scope was then advanced to the oropharynx. At the base of tongue, the patient noted to have thrush. No masses or lesions otherwise at the base of tongue. Scope advanced to the larynx. Vocal cord visualized. Voca l cord motion is symmetric. ____ formation is unremarkable. No masses or lesions seen. Slight post -arytenoid edema and slight erythema. The scope was removed without incident. The patient tolerated the procedure well. RADIOLOGY: CT scan was reviewed and noted thyroid asymmetric enlargement of the left lobe of the thy roid gland with mass effect on the trachea, not fully evaluated on the exam with ____ seen. Asymmetr ic left lobe thyroid gland with a mass effect on trachea due to the above. I am unable to fully evaluate. ASSESSMENT AND PLAN: A 31-year-old female with enlarged left thyroid. 1. The patient with thrush. Recommend patient have Diflucan for oral thrush. 2. Recommend CT of the chest with contrast to evaluate thyroid how far into the chest. 3. Recommend endocrinology consult to evaluate patient's thyroid hormone labs. 4. Recommend patient follow up with Dr. Dinesh Kline as an outpatient upon discharge. The patient is in no distress at this time. The patient discussed surgical options for her thyroid at this time. I discussed with the nursing, discussed with patient and family. Dinesh Kline DO cc: [id number] TT: 08/10/2016 13:14:25 Confirmation # [id number] Dictation # [id number] tn
== END 2016-08-10 14:20 | disposition home or self-care (01) ==
LOC: ED 22:00 → ERH 08-09 02:56 → 5RSO 08-09 04:15
PROVIDERS: ADMIT Internal Medicine; ATTEND Internal Medicine
DX: R13.10 Dysphagia, unspecified (principal); E04.1 Nontoxic single thyroid nodule; G47.00 Insomnia, unspecified; F41.9 Anxiety disorder, unspecified; E01.0 Iodine-deficiency related diffuse (endemic) goiter; B37.0 Candidal stomatitis; Z90.49 Acquired absence of other specified parts of digestive tract; Z86.32 Personal history of gestational diabetes; Z80.6 Family history of leukemia; Z80.0 Family history of malignant neoplasm of digestive organs
CPT/HCPCS: 70490; 76536; 80053; 84436; 84443; 84480; 85025; 99285; G0378; Q9967